=== PATIENT | male | born 1985 | race Hispanic/Latino ===

== ENCOUNTER 2024-04-28 17:31 | Emergency (ER) | payer BC ==
[2024-04-28] MEDS ORDERED: Morphine 4 MG/ML VIAL ONE (17:50)
[2024-04-28] MEDS ORDERED: Diazepam 10 MG/2 ML SYRINGE ONE ×2 (17:50→18:57)
[2024-04-28] MEDS ORDERED: Ketorolac Tromethamine 30 MG (1 mL) VIAL ONE (17:51)
== END 2024-04-28 19:50 | disposition home or self-care (01) ==
LOC: CSHERS 17:31
DX: S39.012A Strain of muscle, fascia and tendon of lower back, initial encounter (principal); X58.XXXA Exposure to other specified factors, initial encounter
CPT/HCPCS: 72131; 96374; 96375; 96376; J1885; J2270; J3360